=== PATIENT | female | born 1940 | race Caucasian/White ===

== ENCOUNTER 2017-11-11 07:44 | Day surgery (SDC) | payer MEDICARE, MEDICAID ==
[2017-11-10 09:18] VITALS: BMI 32.4
[2017-11-11] MEDS ORDERED: Bupivacaine PF 0.5% 30 ML VIAL ONE (10:47)
[2017-11-11] MEDS ORDERED: Betamet Acet/Betamet Na Ph 30 MG/5 ML VIAL ONE (10:47)
[2017-11-11] MEDS ORDERED: Sodium Chloride 0.9% 0 ML ONE (10:47)
[2017-11-11] MEDS ORDERED: Bacitracin Zinc Ointment 30 gm TUBE ONE (10:48)
[2017-11-11] MEDS ORDERED: Fentanyl 100 MCG/2 ML VIAL ONE (10:51)
--- NOTE | 2017-11-11 13:45 | RAD ---
INTRAOPERATIVE RADIOGRAPH RIGHT FINGERS THREE VIEWS: Date: 11-11-17 History: Right thumb metacarpal phalangeal joint fusion release. FINDINGS: Three coned down intraoperative images centered at the first metacarpal phalangeal joint demonstrates two post-operative nails traversing the joint space and what appears to be a cerclage wire extending beyond the soft tissues laterally. IMPRESSION: Intraoperative imaging as above. POS: [facility]
[2017-11-11] MEDS ORDERED: Ketorolac Tromethamine 30 MG/ML VIAL ONE (15:05)
[2017-11-11] MEDS ORDERED: ePHEDrine/0.9% NaCl/PF SYRINGE 50 mg/10 ml ONE (15:25)
[2017-11-11] MEDS ORDERED: Ondansetron HCl/PF 4 MG/2 ML Vial ONE (15:25)
[2017-11-11] MEDS ORDERED: Propofol 200 MG/20 ML VIAL ONE (15:25)
[2017-11-11] MEDS ORDERED: Lidocaine 1% PF 5 ML VIAL ONE (15:25)
[2017-11-11] MEDS ORDERED: Glycopyrrolate 0.2 MG/ML 5 ML SYRINGE ONE (15:25)
[2017-11-11] MEDS ORDERED: Metoclopramide HCl 10 MG/2 ML VIAL ONE (15:25)
[2017-11-11] MEDS ORDERED: Succinylcholine Chloride 20 MG/ML 10 ml SYRINGE FS ONE (15:25)
[2017-11-11] MEDS ORDERED: diphenhydrAMINE 50 MG/ML VIAL ONE (15:25)
[2017-11-11] MEDS ORDERED: Dexamethasone 20 MG/5 ML VIAL ONE (15:25)
--- NOTE | 2017-11-11 21:57 | OP ---
DATE OF PROCEDURE: 11/11/2017 PREOPERATIVE DIAGNOSIS: 1. 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 2. A1 matilde tenosynovitis with thickened A1 matilde and triggering of right thumb. All of this is a t the right thumb. PREOPERATIVE DIAGNOSIS: 1. Right thumb metacarpophalangeal joint osteoarthritis, severe with bilateral radial and ulnar michael ateral ligament instability. 2. A1 matilde tenosynovitis with thickened A1 matilde and triggering of right thumb. All of this is a t the right thumb. FINDINGS: 1. Complete loss of continuity of ulnar collateral ligament and over a 50% loss of continuity of the radial collateral ligament making the thumb highly unstable, probably the basis of her arthritis and the chronic instability. 2. A very thick A1 matilde with nodularity, but no ganglion or other mass found beneath or around the tendon, only triggering without tenosynovitis. PROCEDURE PERFORMED: 1. Right thumb A1 matilde release and trigger thumb release. 2. Right thumb metacarpophalangeal joint arthrodesis with use of skin with small 1 mL bone, but usin g the corner with incongruity leaving the gap once reduced. BLOOD LOSS: 10 mL TOURNIQUET TIME: 80 minutes. SURGEON: Kole Duncan MD ANESTHESIA: General LMA technique by Welsh anesthesia. INDICATIONS: Failure of conservative treatment for the problem listed above. DESCRIPTION OF PROCEDURE: After successful general LMA technique, the limb was prepped and draped. A timeout was done appropriately. We outlined a zigzag fashion over the center of the MP joint incis ion that had the apex radially and we outlined on the palm of the MP joint an incision somewhat less in length but also radial. The patient then had the limb exsanguinated after a timeout was done appropriately. Tourniquet infla ely to 250 mmHg pressure and the zigzag incision of the thumb A1 matilde was then carried to skin and subcutaneous tissue, we could visualize protecting the ulnar digital nerve branch, identified the A1 matilde and released in midline using a [place] blade. Next, we had this wound closed without undue bleeding. This was closed with #4-0 nylon and then we turned our attention to the right thumb metacarpophalange al joint dorsal approach carried through the skin and subcutaneous tissue, 2 cm distal and proximal t o the joint. Here, we saw that the retinaculum, as well as the ulnar collateral, was completely dest royed leaving all this small amount of available tissue, but we used that for later coverage. We the n dissected now, moved the joint capsule to form a synovectomy and the synovium and formed synovectom y exposed the chondral surface and we then used a bur to remove the abnormal cartilage to expose canc ellous bone in the shape of an almost a box on one side and on the other. In order to make a m esh, we had to perform multiple procedures and multiple removals of joint surface to include the palm ar distal end of the phalanx. Now, we have made an appropriate cup and cone cut, obtained hemostasis , we placed using a former 20-gauge needle as a guidewire, a 24-gauge wire in the proximal phalanx ba se and the same thing in parallel fashion over the metacarpal base subchondrally. We then pinned the template with a screw, with a K wire after drilling the holes within the medullary fixation augmente d by box wire. We then removed this, we re-stabbed the holes to shift it more symmetrical in a front al, medial, and lateral plane, coapted the ends, passed the wires on both ends. Once the wires were passed and it was seen that there was a small 5 mm x 2 mm gap creating , and although the radiog raphs on the lateral did not show the gap, we could see it on AP, so we placed cancellous putty in th is area 1 mL, filled up the area completely and then tightened the cerclage wire. The wire was then cut 5 mm long buried below the skin. Hemostasis obtained after tourniquet was deflated and then we c losed in layers. First 4-0 Prolene was used to close the retinaculum interrupted [id number] fas hion. Subcutaneous closure with interrupted 4-0 Monocryl and the skin reapproximated with 4-0 nylon in a simple pattern. Bulky dressing with a splint was applied and the patient had a total of 20 mL i ntraoperative wound anesthesia with 0.5% Marcaine with epinephrine.
== END 2017-11-11 15:35 | disposition home or self-care (01) ==
LOC: SDC 07:44
PROVIDERS: ATTEND Orthopaedic Surgery Hand Surgery
PROC: 0LN70ZZ Release Right Hand Tendon, Open Approach (ICD-10-PCS; principal; 2017-11-11)
PROC: 0RGU04Z Fusion of Right Metacarpophalangeal Joint with Internal Fixation Device, Open Approach (ICD-10-PCS; 2017-11-11)
DX: M18.9 Osteoarthritis of first carpometacarpal joint, unspecified (principal); M25.341 Other instability, right hand; M65.9 Synovitis and tenosynovitis, unspecified; Z88.8 Allergy status to other drugs, medicaments and biological substances; I10 Essential (primary) hypertension; K21.9 Gastro-esophageal reflux disease without esophagitis; E11.40 Type 2 diabetes mellitus with diabetic neuropathy, unspecified; I49.9 Cardiac arrhythmia, unspecified; G89.29 Other chronic pain; M54.9 Dorsalgia, unspecified; I73.9 Peripheral vascular disease, unspecified; Z82.49 Family history of ischemic heart disease and other diseases of the circulatory system; Z79.82 Long term (current) use of aspirin; Z79.84 Long term (current) use of oral hypoglycemic drugs; Z79.899 Other long term (current) drug therapy; Z95.1 Presence of aortocoronary bypass graft; Z96.653 Presence of artificial knee joint, bilateral; Z90.710 Acquired absence of both cervix and uterus; Z98.42 Cataract extraction status, left eye; Z98.41 Cataract extraction status, right eye; Z98.890 Other specified postprocedural states
CPT/HCPCS: 76001; A4216; J0131; J0702; J1100; J1200; J1885; J2001; J2405; J2704; J2765; J3010; J3370; J3490; J7050; S0020

== ENCOUNTER 2018-05-29 05:59 | Day surgery (SDC) | payer MEDICARE, MEDICAID ==
[2018-05-28 09:37] VITALS: BMI 51.5
[2018-05-29] MEDS ORDERED: Bacitracin Zinc Ointment 30 gm TUBE ONE (06:30)
[2018-05-29] MEDS ORDERED: Bupivacaine PF 0.5% 30 ML VIAL ONE (06:30)
[2018-05-29] MEDS ORDERED: Sodium Chloride 0.9% 0 ML ONE (06:31)
[2018-05-29] MEDS ORDERED: Fentanyl 100 MCG/2 ML VIAL ONE (06:59)
[2018-05-29] MEDS ORDERED: Midazolam HCl 2 mg/2 ml Vial ONE (06:59)
[2018-05-29] MEDS ORDERED: CEFAZOLIN/Water 2 GM/20 ML SYRINGE ONE (07:09)
[2018-05-29 07:30] LABS: Anion Gap 15 mmol/L (10-20); BUN (Urea Nitrogen) 17 mg/dL (9.8-20.1); Calc. Creatinine Clearance 113 mL/min (70-130); Calcium 9.4 mg/dL (7.8-10.44); Carbon Dioxide 24 mmol/L (23-31); Chloride 106 mmol/L (98-107); Estimated GFR-MDRD 70; Glucose 142 mg/dL (83-110); Potassium 4.1 mmol/L (3.5-5.1); Sodium 141 mmol/L (136-145)
[2018-05-29] MEDS ORDERED: Ketorolac Tromethamine 30 MG/ML VIAL ONE (09:10)
--- NOTE | 2018-05-29 11:10 | RAD ---
SINGLE INTRAOPERATIVE FLUOROSCOPIC IMAGE RIGHT THUMB: Date: History: Hardware removal, first finger. FINDINGS/IMPRESSION: Fluoroscopic guidance was provided for Dr. Duncan. Provided image demonstrates two pins transfixing the metacarpal phalangeal joint right thumb. POS: [facility]
--- NOTE | 2018-05-29 13:05 | EKG ---
Test Reason : PREOP Blood Pressure : / mmHG Vent. 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 SDelores ([id number]) on 05/29/2018 1:04:55 PM Referred By: THO Confirmed By:DR. Marisol GROSS MD
--- NOTE | 2018-05-30 19:37 | OP ---
DATE OF PROCEDURE: 05/29/2018 PREOPERATIVE DIAGNOSES: Pain, possible suture versus wire at the left thumb. POSTOPERATIVE DIAGNOSES: 1. Solid fusion with the circumference cerclage wire removed. 2. Pain where she complained were actually Prolene stitches small stitch granuloma. PROCEDURES PERFORMED: 1. Removal of Prolene suture and granuloma, thumb, left. 2. Removal of cerclage wires as deep implant. 3. C-arm supervision. COMPLICATIONS: None. TOURNIQUET TIME: Fifteen minutes. ESTIMATED BLOOD LOSS: 5 mL. INJECTABLE: A 20 mL 0.5% Marcaine, 10 given before the incision and 10 after. INDICATIONS: The patient complains of pain, now is 8 months after the arthrodesis of the thumb MP maninder int. Still has some stiffness where she only has . She complained of pain over the dorsal are a of the thumb, which is not an area of wire, but may be sutured as painful. DESCRIPTION OF PROCEDURE: After successful general LMA technique, the limb was prepped and draped. The patient had the incision previously used to open a central 2/3 after exsanguination of the limb a nd inflation of tourniquet to 250 mmHg pressure. We then discovered the sutures and small granuloma around and removed all visible Prolene. We then under C-arm, found the wire, twisted and removed it. There was no gross motion and no motion under fluoroscopy. Tourniquet was deflated. Hemostasis obtained. Wound was closed with interrupted 4-0 nylon in a simp le pattern. The patient left the operating room without evidence of anesthetic or operative complica tion.
== END 2018-05-29 10:00 | disposition home or self-care (01) ==
LOC: SDC 05:59
PROVIDERS: ATTEND Orthopaedic Surgery Hand Surgery
PROC: 0RP Upper Joints, Removal (ICD-10-PCS; principal; 2018-05-29)
DX: T84.84XA Pain due to internal orthopedic prosthetic devices, implants and grafts, initial encounter (principal); L92.8 Other granulomatous disorders of the skin and subcutaneous tissue; M18.11 Unilateral primary osteoarthritis of first carpometacarpal joint, right hand; M25.342 Other instability, left hand; G89.29 Other chronic pain; M54.9 Dorsalgia, unspecified; I10 Essential (primary) hypertension; E11.42 Type 2 diabetes mellitus with diabetic polyneuropathy; Z79.82 Long term (current) use of aspirin; Z79.84 Long term (current) use of oral hypoglycemic drugs; Z79.899 Other long term (current) drug therapy; Z91.048 Other nonmedicinal substance allergy status; Z98.1 Arthrodesis status; Z96.653 Presence of artificial knee joint, bilateral; Z98.890 Other specified postprocedural states
CPT/HCPCS: 36415; 76001; 80048; 93005; 93010; A4216; J1885; J2250; J3010; J3490; S0020

== ENCOUNTER 2024-03-22 15:11 | Inpatient (IN) | payer OTHER, MEDICAID ==
[2024-03-22 15:56] VITALS: BMI 51.2
[2024-03-22] MEDS ORDERED: hydrALAZINE 20 MG/ML VIAL SLOW IVP PRN (16:10)
[2024-03-22] MEDS ORDERED: HumaLOG 300 UNITS/3 ML VIAL SC PRN (16:14)
[2024-03-22] MEDS ORDERED: Glucagon 1 MG/ML KIT IM PRN (16:14)
[2024-03-22] MEDS ORDERED: Dextrose 5% in Water 1,000 ML IV PRN (16:14)
[2024-03-22] MEDS ORDERED: Dextrose 50% Abboject 50 ML SYRINGE SLOW IVP PRN (16:14)
[2024-03-22] MEDS: Metoprolol Tartrate 25 MG TAB PO SCH (21:39)
[2024-03-22] MEDS: Gabapentin 400 MG CAP PO SCH (21:40)
[2024-03-22] MEDS: Atorvastatin Calcium 10 MG TAB PO SCH (21:40)
[2024-03-22] MEDS: Acetaminophen/Codeine 30-300mg Tablet PO SCH (22:09)
[2024-03-22] MEDS: Pramipexole Di-HCl 0.125 MG TAB PO PRN (22:10)
[2024-03-23 04:50] LABS: #Basophils 0.06 10x3/uL (0.0-0.2); %Basophils 0.7 % (0.0-1.0); %Eosinophils 2.4 % (0.0-10.0); %Lymphocytes 31.8 % (21.0-51.0); %Monocytes 11.5 % (0.0-10.0); %Neutrophils 53.1 % (42.0-75.0); Hematocrit 43.2 % (36.0-47.0); Hemoglobin 13.5 g/dL (12.0-16.0); Mean Corpuscular HGB CONC 31.3 g/dL (32.0-36.0); Mean Corpuscular Hemoglobin 30.4 pg (27.0-31.0); Mean Corpuscular Volume 97.3 fL (78.0-98.0); Mean Platelet Volume 10.9 fL (7.4-10.4); Platelet Count 195 10x3/uL (130-400); RBC Distribution Width 14.4 % (11.5-14.5); Red Blood Cell (RBC) Count 4.44 mill/uL (4.20-5.40)
[2024-03-23 05:57] LABS: Anion Gap 16 mmol/L (10-20); BUN (Urea Nitrogen) 37 mg/dL (9.8-20.1); Calc. Creatinine Clearance 68 mL/min (70-130); Calcium 9.1 mg/dL (7.8-10.44); Carbon Dioxide 28 mmol/L (23-31); Chloride 102 mmol/L (98-107); Estimated GFR 46; Glucose 161 mg/dL (83-110); Potassium 5.4 mmol/L (3.5-5.1); Sodium 141 mmol/L (136-145)
[2024-03-23] MEDS: Furosemide 40 MG (4 mL) VIAL SLOW IVP SCH (06:33)
[2024-03-23] MEDS: HumaLOG 300 UNITS/3 ML VIAL SC PRN (06:33)
[2024-03-23] MEDS ORDERED: Non-Formulary Item 1 EACH (Omeprazole [Omeprazole] 20 MG Capsule.Dr) PO SCH (09:00)
[2024-03-23] MEDS ORDERED: Enoxaparin 40 MG (0.4 mL) SYRINGE SC SCH (09:00)
[2024-03-23] MEDS: Insulin Regular, Human 100 UNIT/ML 10 ML VIAL IVP SCH (09:30)
[2024-03-23] MEDS: Dextrose 50% Abboject 50 ML SYRINGE SLOW IVP SCH (09:30)
[2024-03-23] MEDS: Aspirin 81 mg Enteric Coated Tablet PO SCH (09:32)
[2024-03-23] MEDS: Empagliflozin 25 MG TAB PO SCH (09:33)
[2024-03-23] MEDS: Pantoprazole DR 40 MG TAB PO SCH (09:33)
[2024-03-23] MEDS: Lisinopril 20 MG TAB PO SCH (09:37)
[2024-03-23] MEDS: Acetaminophen/Codeine 30-300mg Tablet PO SCH (09:38)
[2024-03-23] MEDS: Albuterol 2.5 MG (3 mL) NEB NEB SCH (10:35)
[2024-03-23] MEDS: Apixaban 5 MG TAB PO SCH (21:05)
[2024-03-23] MEDS: Atorvastatin Calcium 40 MG TAB PO SCH (21:06)
[2024-03-24 04:43] LABS: Hematocrit 42.6 % (36.0-47.0); Hemoglobin 13.3 g/dL (12.0-16.0); Mean Corpuscular HGB CONC 31.2 g/dL (32.0-36.0); Mean Corpuscular Hemoglobin 30.8 pg (27.0-31.0); Mean Corpuscular Volume 98.6 fL (78.0-98.0); Platelet Count 200 10x3/uL (130-400); RBC Distribution Width 14.3 % (11.5-14.5); Red Blood Cell (RBC) Count 4.32 mill/uL (4.20-5.40)
[2024-03-24 05:04] LABS: Anion Gap 17 mmol/L (10-20); BUN (Urea Nitrogen) 44 mg/dL (9.8-20.1); Calc. Creatinine Clearance 61 mL/min (70-130); Calcium 8.6 mg/dL (7.8-10.44); Carbon Dioxide 31 mmol/L (23-31); Chloride 98 mmol/L (98-107); Estimated GFR 40; Glucose 169 mg/dL (83-110); Sodium 141 mmol/L (136-145)
[2024-03-24] MEDS: Pantoprazole DR 40 MG TAB PO SCH (16:26)
[2024-03-24] MEDS: Lactated Ringer's 1,000 ML IV SCH (16:27)
[2024-03-25] MEDS: Acetaminophen 325 MG TAB PO PRN (02:27)
[2024-03-25 04:43] LABS: #Basophils 0.04 10x3/uL (0.0-0.2); %Basophils 0.4 % (0.0-1.0); %Eosinophils 3.1 % (0.0-10.0); %Lymphocytes 34.5 % (21.0-51.0); %Monocytes 11.7 % (0.0-10.0); %Neutrophils 49.7 % (42.0-75.0); Hematocrit 41.2 % (36.0-47.0); Hemoglobin 12.8 g/dL (12.0-16.0); Mean Corpuscular HGB CONC 31.1 g/dL (32.0-36.0); Mean Corpuscular Hemoglobin 30.4 pg (27.0-31.0); Mean Corpuscular Volume 97.9 fL (78.0-98.0); Mean Platelet Volume 11.2 fL (7.4-10.4); Platelet Count 182 10x3/uL (130-400); RBC Distribution Width 14.1 % (11.5-14.5); Red Blood Cell (RBC) Count 4.21 mill/uL (4.20-5.40)
[2024-03-25 05:21] LABS: Anion Gap 14 mmol/L (10-20); BUN (Urea Nitrogen) 49 mg/dL (9.8-20.1); Calc. Creatinine Clearance 65 mL/min (70-130); Carbon Dioxide 27 mmol/L (23-31); Chloride 100 mmol/L (98-107); Estimated GFR 43; Glucose 178 mg/dL (83-110); Potassium 4.2 mmol/L (3.5-5.1); Sodium 137 mmol/L (136-145)
[2024-03-25] MEDS: Pantoprazole DR 40 MG TAB PO SCH (09:59)
[2024-03-26 04:32] LABS: #Basophils 0.06 10x3/uL (0.0-0.2); %Basophils 0.6 % (0.0-1.0); %Eosinophils 2.8 % (0.0-10.0); %Lymphocytes 37.1 % (21.0-51.0); %Monocytes 10.9 % (0.0-10.0); %Neutrophils 48.2 % (42.0-75.0); Hematocrit 43.8 % (36.0-47.0); Hemoglobin 13.6 g/dL (12.0-16.0); Mean Corpuscular HGB CONC 31.1 g/dL (32.0-36.0); Mean Corpuscular Hemoglobin 30.4 pg (27.0-31.0); Mean Corpuscular Volume 97.8 fL (78.0-98.0); Mean Platelet Volume 11.2 fL (7.4-10.4); Platelet Count 188 10x3/uL (130-400); RBC Distribution Width 14.2 % (11.5-14.5); Red Blood Cell (RBC) Count 4.48 mill/uL (4.20-5.40)
[2024-03-26 04:48] LABS: Anion Gap 13 mmol/L (10-20); BUN (Urea Nitrogen) 40 mg/dL (9.8-20.1); Calc. Creatinine Clearance 73 mL/min (70-130); Calcium 8.2 mg/dL (7.8-10.44); Carbon Dioxide 28 mmol/L (23-31); Chloride 102 mmol/L (98-107); Estimated GFR 50; Glucose 199 mg/dL (83-110); Potassium 4.9 mmol/L (3.5-5.1); Sodium 138 mmol/L (136-145)
[2024-03-26 17:52] VITALS: BP 134/58; TEMP 98.1
== END 2024-03-26 18:30 | disposition home or self-care (01) | DRG 291 ==
LOC: 2SW 15:11 → 2NO 16:42 → OBSVTOIN 03-23 14:27
PROVIDERS: ADMIT Internal Medicine; ATTEND Hospitalist
DX: I11.0 Hypertensive heart disease with heart failure (principal); I50.33 Acute on chronic diastolic (congestive) heart failure; J96.01 Acute respiratory failure with hypoxia; N17.9 Acute kidney failure, unspecified; E66.2 Morbid (severe) obesity with alveolar hypoventilation; Z68.43 Body mass index [BMI] 50.0-59.9, adult; E11.9 Type 2 diabetes mellitus without complications; I25.10 Atherosclerotic heart disease of native coronary artery without angina pectoris; J44.9 Chronic obstructive pulmonary disease, unspecified; E78.00 Pure hypercholesterolemia, unspecified; M54.9 Dorsalgia, unspecified; G89.29 Other chronic pain; I48.91 Unspecified atrial fibrillation; G47.33 Obstructive sleep apnea (adult) (pediatric); Z91.013 Allergy to seafood; Z79.82 Long term (current) use of aspirin; Z79.899 Other long term (current) drug therapy; Z95.1 Presence of aortocoronary bypass graft; Z98.890 Other specified postprocedural states; Z87.891 Personal history of nicotine dependence; Z71.3 Dietary counseling and surveillance
CPT/HCPCS: 36415; 36416; 80048; 82040; 85025; 85027; 93306; J1815; J1940; J7120; J7999

== ENCOUNTER 2024-11-04 21:03 | Inpatient (IN) | payer OTHER ==
[2024-11-04 23:04] VITALS: BMI 57.4
[2024-11-04] MEDS ORDERED: Ondansetron PF 4 MG/2 ML Vial IVP PRN (23:55)
[2024-11-05] MEDS ORDERED: Dextrose 5% in Water 1,000 ML IV PRN (00:12)
[2024-11-05] MEDS ORDERED: Insulin Lispro 100 UNIT/ML 10 ML VIAL SC PRN (00:12)
[2024-11-05] MEDS ORDERED: Dextrose 50% Abboject 50 ML SYRINGE SLOW IVP PRN (00:12)
[2024-11-05] MEDS ORDERED: Glucagon 1 MG/ML KIT IM PRN (00:12)
[2024-11-05] MEDS ORDERED: Albuterol 1.25 MG (3 mL) NEB NEB PRN (00:25)
[2024-11-05] MEDS: Acetaminophen/Codeine 30-300mg Tablet PO SCH ×2 (00:59→09:05)
[2024-11-05] MEDS: Vancomycin 1 GM in Premix 1 BAG IVPB SCH (00:59)
[2024-11-05] MEDS: Cefepime 1 GM in Sodium Chloride 0.9% 100 ML IVPB SCH (01:00)
[2024-11-05 01:20] LABS: Troponin I 0.017 ng/mL (< 0.028)
[2024-11-05 04:08] LABS: #Basophils 0.05 10x3/uL (0.0-0.2); %Basophils 0.6 % (0.0-1.0); %Eosinophils 1.4 % (0.0-10.0); %Lymphocytes 25.3 % (21.0-51.0); %Neutrophils 59.2 % (42.0-75.0); Hematocrit 35.6 % (36.0-47.0); Hemoglobin 10.8 g/dL (12.0-16.0); Mean Corpuscular HGB CONC 30.3 g/dL (32.0-36.0); Mean Corpuscular Hemoglobin 28.8 pg (27.0-31.0); Mean Corpuscular Volume 94.9 fL (78.0-98.0); Mean Platelet Volume 10.1 fL (7.4-10.4); Platelet Count 224 10x3/uL (130-400); RBC Distribution Width 15.6 % (11.5-14.5); Red Blood Cell (RBC) Count 3.75 mill/uL (4.20-5.40)
[2024-11-05 04:33] LABS: Anion Gap 15 mmol/L (10-20); BUN (Urea Nitrogen) 43 mg/dL (9.8-20.1); Calc. Creatinine Clearance 67 mL/min (70-130); Calcium 7.7 mg/dL (7.8-10.44); Carbon Dioxide 25 mmol/L (23-31); Chloride 101 mmol/L (98-107); Estimated GFR 39; Glucose 170 mg/dL (83-110); Potassium 4.7 mmol/L (3.5-5.1); Sodium 136 mmol/L (136-145)
[2024-11-05 04:34] LABS: Vancomycin, Random 20.8 ug/mL (See Comment)
[2024-11-05] MEDS: Furosemide 40 MG (4 mL) VIAL SLOW IVP SCH (05:00)
[2024-11-05] MEDS: Lisinopril 20 MG TAB PO SCH (09:04)
[2024-11-05] MEDS: Saxagliptin 2.5 MG TAB PO SCH (09:04)
[2024-11-05] MEDS: Gabapentin 400 MG CAP PO SCH (09:04)
[2024-11-05] MEDS: Aspirin 81 mg Enteric Coated Tablet PO SCH (09:04)
[2024-11-05] MEDS: Empagliflozin 25 MG TAB PO SCH (09:04)
[2024-11-05] MEDS: Pramipexole Di-HCl 0.125 MG TAB PO SCH (09:05)
[2024-11-05] MEDS: Hydrochlorothiazide 25 MG TAB PO SCH (09:06)
[2024-11-05] MEDS: Famotidine/PF 20 mg/2ml Vial SLOW IVP SCH (09:06)
[2024-11-05] MEDS: Enoxaparin 40 MG (0.4 mL) SYRINGE SC SCH (09:06)
[2024-11-05] MEDS: Insulin Lispro 100 UNIT/ML 10 ML VIAL SC PRN (12:23)
[2024-11-05] MEDS: Albumin 25% 25 GM (100 mL) BOT IVPB SCH (12:23)
[2024-11-05] MEDS: Atorvastatin Calcium 10 MG TAB PO SCH (21:03)
[2024-11-05] MEDS: VANCOMYCIN 1.25 GM/250 ML BAG 1.25 GM in Premix 1 BAG IVPB SCH (23:36)
[2024-11-06 04:48] LABS: Troponin I 0.026 ng/mL (< 0.028)
[2024-11-06 09:51] LABS: Anion Gap 16 mmol/L (10-20); BUN (Urea Nitrogen) 53 mg/dL (9.8-20.1); Calc. Creatinine Clearance 46 mL/min (70-130); Calcium 7.9 mg/dL (7.8-10.44); Carbon Dioxide 23 mmol/L (23-31); Chloride 98 mmol/L (98-107); Estimated GFR 24; Glucose 206 mg/dL (83-110); Potassium 5.4 mmol/L (3.5-5.1); Sodium 132 mmol/L (136-145)
[2024-11-06] MEDS: LOKELMA 10 GM PACKET PO SCH (12:52)
[2024-11-06] MEDS: Semaglutide [Ozempic] 0.25 MG/0.368 ML Pen.Injctr SC SCH (14:38)
[2024-11-06 19:38] LABS: Potassium 4.9 mmol/L (3.5-5.1)
[2024-11-06] MEDS: Heparin 5,000 UNITS/ML VIAL SC SCH (21:39)
[2024-11-06] MEDS: Gabapentin 100 MG CAP PO SCH (21:40)
[2024-11-07] MEDS: Sodium Chloride 0.9% 250 ML IV SCH (03:50)
[2024-11-07] MEDS: Albumin 25% 25 GM (100 mL) BOT IVPB SCH (03:59)
[2024-11-07] MEDS: Midodrine HCl 5 MG TAB PO SCH (04:18)
[2024-11-07 04:53] LABS: ALT (SGPT) 14 U/L (8-55); AST (SGOT) 19 U/L (5-34); Albumin 3.5 g/dL (3.4-4.8); Alkaline Phosphatase 86 U/L (40-110); Anion Gap 16 mmol/L (10-20); BUN (Urea Nitrogen) 63 mg/dL (9.8-20.1); Bilirubin, Total 0.7 mg/dL (0.2-1.2); Calc. Creatinine Clearance 36 mL/min (70-130); Calcium 7.6 mg/dL (7.8-10.44); Carbon Dioxide 20 mmol/L (23-31); Chloride 100 mmol/L (98-107); Estimated GFR 18; Globulin 2.9 g/dL (2.4-3.5); Glucose 138 mg/dL (83-110); Magnesium 2.4 mg/dL (1.6-2.6); Potassium 5.4 mmol/L (3.5-5.1); Protein, Total 6.4 g/dL (5.8-8.1); Sodium 131 mmol/L (136-145)
[2024-11-07 04:57] LABS: #Basophils 0.05 10x3/uL (0.0-0.2); %Basophils 0.6 % (0.0-1.0); %Eosinophils 2.4 % (0.0-10.0); %Lymphocytes 31.5 % (21.0-51.0); Hematocrit 38.9 % (36.0-47.0); Hemoglobin 11.8 g/dL (12.0-16.0); Mean Corpuscular HGB CONC 30.3 g/dL (32.0-36.0); Mean Corpuscular Hemoglobin 29.4 pg (27.0-31.0); Mean Corpuscular Volume 96.8 fL (78.0-98.0); Mean Platelet Volume 10.4 fL (7.4-10.4); Platelet Count 212 10x3/uL (130-400); RBC Distribution Width 15.9 % (11.5-14.5); Red Blood Cell (RBC) Count 4.02 mill/uL (4.20-5.40)
[2024-11-07] MEDS: DOBUTamine 500 mg/250 ml 250 ML IVPB SCH (06:14)
[2024-11-07] MEDS ORDERED: DOBUTamine 500 mg/250 ml 250 ML IVPB SCH (06:45)
[2024-11-07] MEDS: Amiodarone 450 MG in Dextrose 5% in Water 250 ML IVPB SCH (09:59)
[2024-11-07] MEDS ORDERED: Vancomycin Dose by Levels Sliding Scale (Wt > 99) FS SCH (10:15)
[2024-11-07 10:16] LABS: Hemoglobin A1c 7.3 % (4.0-6.0)
[2024-11-07] MEDS: Vancomycin (BATCH) 2 GM in Premix 1 BAG IVPB SCH (10:25)
[2024-11-07] MEDS: LOKELMA 10 GM PACKET PO SCH (10:25)
[2024-11-07 11:25] VITALS: BP 102/57
[2024-11-07 13:25] LABS: Anion Gap 18 mmol/L (10-20); BUN (Urea Nitrogen) 64 mg/dL (9.8-20.1); Calc. Creatinine Clearance 34 mL/min (70-130); Calcium 7.5 mg/dL (7.8-10.44); Carbon Dioxide 20 mmol/L (23-31); Chloride 98 mmol/L (98-107); Estimated GFR 17; Glucose 210 mg/dL (83-110); Potassium 4.8 mmol/L (3.5-5.1); Sodium 131 mmol/L (136-145)
[2024-11-07] MEDS: DOPamine 400 MG/D5W 250 ML 250 ML IVPB SCH (15:07)
[2024-11-07] MEDS: Dexmedetomidine In 0.9 % NaCl 100 ML IV SCH (16:45)
[2024-11-08 06:13] LABS: #Basophils 0.05 10x3/uL (0.0-0.2); %Basophils 0.6 % (0.0-1.0); %Eosinophils 3.5 % (0.0-10.0); %Lymphocytes 19.2 % (21.0-51.0); %Monocytes 15.6 % (0.0-10.0); %Neutrophils 60.7 % (42.0-75.0); Hematocrit 37.6 % (36.0-47.0); Hemoglobin 11.4 g/dL (12.0-16.0); Mean Corpuscular HGB CONC 30.3 g/dL (32.0-36.0); Mean Corpuscular Hemoglobin 28.6 pg (27.0-31.0); Mean Corpuscular Volume 94.5 fL (78.0-98.0); Mean Platelet Volume 9.9 fL (7.4-10.4); Platelet Count 223 10x3/uL (130-400); RBC Distribution Width 15.4 % (11.5-14.5); Red Blood Cell (RBC) Count 3.98 mill/uL (4.20-5.40)
[2024-11-08 06:53] LABS: Anion Gap 15 mmol/L (10-20); BUN (Urea Nitrogen) 58 mg/dL (9.8-20.1); Calc. Creatinine Clearance 45 mL/min (70-130); Calcium 7.6 mg/dL (7.8-10.44); Carbon Dioxide 20 mmol/L (23-31); Chloride 97 mmol/L (98-107); Estimated GFR 23; Glucose 434 mg/dL (83-110); Potassium 4.7 mmol/L (3.5-5.1); Sodium 127 mmol/L (136-145)
[2024-11-08] MEDS: Insulin Glargine 30 UNITS/0.3 ML VIAL SC SCH (10:17)
[2024-11-08] MEDS: Apixaban 2.5 MG TAB PO SCH (10:24)
[2024-11-08] MEDS: Amiodarone 150 MG, Admixture Fee 1 EACH in Dextrose 5% in Water 100 ML IVPB SCH (10:24)
[2024-11-08 10:46] LABS: Vancomycin, Trough 25.7 ug/mL
[2024-11-08 10:47] LABS: Anion Gap 15 mmol/L (10-20); BUN (Urea Nitrogen) 57 mg/dL (9.8-20.1); Calc. Creatinine Clearance 48 mL/min (70-130); Calcium 8.1 mg/dL (7.8-10.44); Carbon Dioxide 24 mmol/L (23-31); Chloride 98 mmol/L (98-107); Estimated GFR 25; Glucose 269 mg/dL (83-110); Potassium 4.5 mmol/L (3.5-5.1); Sodium 132 mmol/L (136-145)
[2024-11-08 10:50] LABS: Anion Gap 16 mmol/L (10-20); BUN (Urea Nitrogen) 56 mg/dL (9.8-20.1); Calc. Creatinine Clearance 49 mL/min (70-130); Calcium 7.8 mg/dL (7.8-10.44); Carbon Dioxide 22 mmol/L (23-31); Chloride 99 mmol/L (98-107); Estimated GFR 25; Glucose 303 mg/dL (83-110); Phosphorus 5.2 mg/dL (2.3-4.7); Potassium 4.6 mmol/L (3.5-5.1); Sodium 132 mmol/L (136-145)
[2024-11-08 13:31] VITALS: BMI 60.2
[2024-11-08] MEDS: Haloperidol Lactate 5 MG/ML VIAL IM SCH (22:17)
[2024-11-09] MEDS: diphenhydrAMINE 50 MG/ML VIAL IVP SCH (00:14)
[2024-11-09] MEDS ORDERED: Labetalol HCl 100 MG/20 ML VIAL SLOW IVP PRN (01:03)
[2024-11-09] MEDS: hydrALAZINE 20 MG/ML VIAL SLOW IVP PRN (01:09)
[2024-11-09] MEDS: Sterile Water 10 ML VIAL FS SCH (04:08)
[2024-11-09] MEDS: OLANZapine 10 MG VIAL IM SCH ×2 (04:08→21:43)
[2024-11-09 04:56] LABS: Hematocrit 40.6 % (36.0-47.0); Hemoglobin 12.3 g/dL (12.0-16.0); Mean Corpuscular Volume 94.6 fL (78.0-98.0); Red Blood Cell (RBC) Count 4.29 mill/uL (4.20-5.40)
[2024-11-09 04:57] LABS: #Basophils 0.04 10x3/uL (0.0-0.2); %Basophils 0.4 % (0.0-1.0); %Eosinophils 0.5 % (0.0-10.0); %Lymphocytes 6.9 % (21.0-51.0); %Monocytes 8.4 % (0.0-10.0); %Neutrophils 83.2 % (42.0-75.0); Mean Corpuscular HGB CONC 30.3 g/dL (32.0-36.0); Mean Corpuscular Hemoglobin 28.7 pg (27.0-31.0); Mean Platelet Volume 9.9 fL (7.4-10.4); Platelet Count 231 10x3/uL (130-400); RBC Distribution Width 15.5 % (11.5-14.5)
[2024-11-09 05:13] LABS: Anion Gap 17 mmol/L (10-20); BUN (Urea Nitrogen) 51 mg/dL (9.8-20.1); Calc. Creatinine Clearance 71 mL/min (70-130); Calcium 8.1 mg/dL (7.8-10.44); Carbon Dioxide 20 mmol/L (23-31); Chloride 105 mmol/L (98-107); Estimated GFR 39; Glucose 196 mg/dL (83-110); Magnesium 2.4 mg/dL (1.6-2.6); Potassium 5.2 mmol/L (3.5-5.1); Sodium 137 mmol/L (136-145)
[2024-11-09] MEDS: Enoxaparin 100 MG (1 mL) SYRINGE SC SCH (08:55)
[2024-11-09] MEDS: Enoxaparin 40 MG (0.4 mL) SYRINGE SC SCH (08:55)
[2024-11-09 10:53] LABS: Actual Bicarbonate (HCO3a) 25.8 mEq/L (22-28); Base Excess (BEa) -1.4 mEq/L (-2.0 to +3.0); CO2 Tension 54.1 mmHg (35.0-45.0); Calcium, Ionized (arterial) 1.16 mmol/L (1.12-1.30); Carboxyhemoglobin (COHb) 1.5 gm% (0.0-3.0); Hematocrit-ABG 39 % (36.0-47.0); Hemoglobin (Hb) 13.3 g/dL (12.0-16.0); O2 Tension (PaO2), arterial 77.1 mmHg (> 60.0); Potassium - ABG Lab 5.09 mmol/L (3.70-5.30); pH, Arterial 7.297 (7.35-7.45)
[2024-11-09 10:55] LABS: ALV-art Gradient 211.775 mmHg (0-20); Puncture Site Right Radial artery
[2024-11-09 11:21] LABS: Vancomycin, Trough 18.5 ug/mL
[2024-11-09 11:22] LABS: Anion Gap 15 mmol/L (10-20); BUN (Urea Nitrogen) 48 mg/dL (9.8-20.1); Calc. Creatinine Clearance 77 mL/min (70-130); Calcium 8.3 mg/dL (7.8-10.44); Carbon Dioxide 23 mmol/L (23-31); Chloride 105 mmol/L (98-107); Estimated GFR 44; Glucose 197 mg/dL (83-110); Potassium 5.2 mmol/L (3.5-5.1); Sodium 138 mmol/L (136-145)
[2024-11-09] MEDS: Ergocalciferol 1.25 MG(50,000 UNITS) CAP PO SCH (11:22)
[2024-11-09] MEDS: LOKELMA 10 GM PACKET PO SCH (11:23)
[2024-11-09] MEDS: Vancomycin 1 GM in Premix 1 BAG IVPB SCH (14:27)
[2024-11-09] MEDS: Morphine 2 MG/ML VIAL SLOW IVP PRN (15:22)
[2024-11-09] MEDS: Haloperidol Lactate 5 MG/ML VIAL IM PRN (16:41)
[2024-11-09] MEDS ORDERED: Sterile Water 10 ML VIAL FS PRN (20:45)
[2024-11-10 04:35] LABS: Vancomycin, Random 24.1 ug/mL (See Comment)
[2024-11-10] MEDS: Dexmedetomidine 1,000 MCG in NS 250 mL IVPB SCH (04:42)
[2024-11-10] MEDS: Calcitriol 0.25 MCG CAP PO SCH (09:58)
[2024-11-10 11:40] VITALS: TEMP 97.6
[2024-11-10] MEDS: Morphine 4 MG/ML VIAL SLOW IVP PRN (12:50)
[2024-11-10] MEDS: Lorazepam 2 MG/ML VIAL SLOW IVP PRN (13:05)
[2024-11-10] MEDS: Morphine 4 MG/ML VIAL ONE (13:20)
[2024-11-10] MEDS ORDERED: Enoxaparin 30 MG (0.3 mL) SYRINGE SC SCH (21:00)
[2024-12-28] MEDS ORDERED: Ergocalciferol 1.25 MG(50,000 UNITS) CAP PO SCH (09:00)
== END 2024-11-10 15:09 | disposition expired | DRG 602 ==
LOC: 2NO 22:23 → UNDOADMIN 22:23 → 2NO 11-05 14:18 → CCU 11-07 11:25
PROVIDERS: ADMIT Family Medicine; ATTEND Internal Medicine
PROC: 3E03329 Introduction of Other Anti-infective into Peripheral Vein, Percutaneous Approach (ICD-10-PCS; 2024-11-05)
PROC: 5A09357 Assistance with Respiratory Ventilation, Less than 24 Consecutive Hours, Continuous Positive Airway Pressure (ICD-10-PCS; 2024-11-07)
PROC: 3E033XZ Introduction of Vasopressor into Peripheral Vein, Percutaneous Approach (ICD-10-PCS; 2024-11-07)
PROC: 5A0935Z Assistance with Respiratory Ventilation, Less than 24 Consecutive Hours (ICD-10-PCS; 2024-11-08)
PROC: 4A033R1 Measurement of Arterial Saturation, Peripheral, Percutaneous Approach (ICD-10-PCS; principal; 2024-11-09)
DX: L03.116 Cellulitis of left lower limb (principal); I50.33 Acute on chronic diastolic (congestive) heart failure; J96.21 Acute and chronic respiratory failure with hypoxia; I13.0 Hypertensive heart and chronic kidney disease with heart failure and stage 1 through stage 4 chronic kidney disease, or unspecified chronic kidney disease; Z68.43 Body mass index [BMI] 50.0-59.9, adult; N17.9 Acute kidney failure, unspecified; E87.1 Hypo-osmolality and hyponatremia; E87.20 Acidosis, unspecified; N25.81 Secondary hyperparathyroidism of renal origin; E66.2 Morbid (severe) obesity with alveolar hypoventilation; L97.911 Non-pressure chronic ulcer of unspecified part of right lower leg limited to breakdown of skin; I48.19 Other persistent atrial fibrillation; J44.1 Chronic obstructive pulmonary disease with (acute) exacerbation; L97.921 Non-pressure chronic ulcer of unspecified part of left lower leg limited to breakdown of skin; Z66 Do not resuscitate; Z51.5 Encounter for palliative care; L03.115 Cellulitis of right lower limb; K21.9 Gastro-esophageal reflux disease without esophagitis; E78.5 Hyperlipidemia, unspecified; I25.10 Atherosclerotic heart disease of native coronary artery without angina pectoris; N18.30 Chronic kidney disease, stage 3 unspecified; E87.5 Hyperkalemia; I95.9 Hypotension, unspecified; I48.0 Paroxysmal atrial fibrillation; Z79.84 Long term (current) use of oral hypoglycemic drugs; Z95.1 Presence of aortocoronary bypass graft; Z99.81 Dependence on supplemental oxygen; Z79.899 Other long term (current) drug therapy; F41.9 Anxiety disorder, unspecified; Z90.710 Acquired absence of both cervix and uterus; Z91.048 Other nonmedicinal substance allergy status; E11.622 Type 2 diabetes mellitus with other skin ulcer; I27.81 Cor pulmonale (chronic); E11.22 Type 2 diabetes mellitus with diabetic chronic kidney disease; I50.810 Right heart failure, unspecified; I27.20 Pulmonary hypertension, unspecified; R00.1 Bradycardia, unspecified
CPT/HCPCS: 36415; 36416; 36600; 71045; 76770; 80048; 80053; 80202; 82306; 82565; 82805; 83036; 83605; 83735; 83970; 84100; 84443; 84484; 85025; 87040; 87081; 93306; 94660; 97139; J0282; J0360; J0692; J1200; J1250; J1265; J1630; J1644; J1650; J1815; J1940; J2060; J2270; J2272; J3370; J3490; J7030; J7050; J7070; P9047